=== PATIENT | female | born 1965 | race Caucasian/White ===

== ENCOUNTER 2018-04-15 09:40 | Day surgery (SDC) | payer BC ==
--- NOTE | 2018-04-05 17:04 | HP ---
AMENDED REPORT NOW INCLUDES COSIGNER DESIGNATION PREOPERATIVE HISTORY AND PHYSICAL: DATE OF ADMISSION/SURGERY: 04/15/18 DATE OF OFFICE VISIT/ENCOUNTER: 03/23/18 ATTENDING SURGEON: Renae Krause MD * (DICTATED BY DODIE MARKS) PROCEDURE: Left thumb trigger release. CHIEF COMPLAINT: Left thumb stiffness and pain. HISTORY OF PRESENT ILLNESS: This is a 53-year-old female who has had symptoms in her left thumb since end of 2016. She does not recall any specific injury. She complains of lack of motion, pain, and some occasional catching. She received a cortisone injection in June 2017, which was helpful for a period of time, but unfortunately the symptoms recurred. She is interested now in pursuing surgical intervention. PAST MEDICAL HISTORY: 1. History of a heart murmur. 2. Anxiety. PAST SURGICAL HISTORY: 1. Tubal ligation. 2. Bilateral cataract removal. CURRENT MEDICATIONS: Lexapro 20 mg daily. ALLERGIES: SULFA ANTIBIOTICS cause nausea. FAMILY MEDICAL HISTORY: Heart disease, hypertension, cancer, rheumatoid arthritis. 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 She smokes on rare occasion. She denies recreational drug use and she drinks alcohol on occasion. REVIEW OF SYSTEMS: Negative for general, cephalic, cardiovascular, respiratory , GI, , other musculoskeletal, integumentary, endocrine, neurologic, and hematologic symptoms. Infectious Disease: Negative for MRSA, hepatitis C, HIV. PHYSICAL EXAMINATION GENERAL: Well-developed, well-nourished 53-year-old female, in no acute distress. VITAL SIGNS: Height 5 feet 3 inches, weight 118 pounds. Pulse rate 72, blood pressure 110/72. HEENT: Normocephalic, atraumatic. Pupils are equal, round, and reactive to light and accommodation. Extraocular movements are intact. Throat is clear. NECK: Supple. No palpable lymph nodes. PULMONARY: Lungs are clear to auscultation bilaterally. No wheezes, rales, or rhonchi. CARDIOVASCULAR: Regular rate and rhythm. S1, S2. Faint systolic murmur detected on auscultation. No rubs or gallops or edema. ABDOMEN: Positive bowel sounds. Soft, nontender. NEUROLOGICAL: Alert and oriented x3. Cranial nerves II through XII are intact. Sensation is intact to light touch. MUSCULOSKELETAL: On exam of her right thumb, she has tenderness to palpation at the A1 isabel and clicking with flexion. She has trouble flexing her thumb all the way. Skin is intact. Neurovascular function is intact. IMPRESSION: Left trigger thumb. PLAN: The patient is scheduled to undergo a left thumb trigger release with Dr. Krause on 04/15/18. She will return to the office 10 days postop for followup and suture removal. A prescription for Tylenol No. 3 was e-scribed to the patient's pharmacy for postoperative pain management. DODIE MARKS [id number]/FAZAL #: [id number] MTDBrooke
[~2018-04-15 09:40] MED LIST: Acetaminophen TAB* 325 MG PO PRN; Buffered Lidocaine 0.9% SYRIN* 5 ML/SYR SYRINGE INTRADERM ONE; Dexamethasone TAB* 4 MG ONE; Dexamethasone TAB* 4 MG PO ONE; DiMENhydriNATE IV* 50 MG/ML VIAL IV PUSH PRN; Famotidine IV* 10 MG/ML 2 ML (20 mg) IV ONE; Famotidine IV* 10 MG/ML 2 ML (20 mg) ONE; Naloxone* 0.4 MG/ML 1 ML VIAL IV PRN; Ondansetron ODT TAB* 4 MG ONE; Ondansetron TAB* 4 MG PO ONE; PROCHLORPERAZINE INJ 5 MG/ML 2 ML VIAL IV PRN; fentaNYL* 50 MCG/ML 2 ML VIAL (100 MCG VIAL) IV PRN; oxyCODONE/Acetamin 5/325 MG* TAB PO PRN
[2018-04-15] MEDS ORDERED: Lidocaine 1% INJ* 10 MG/ML 30 ML SDV ONE (10:19)
[2018-04-15] MEDS ORDERED: fentaNYL* 50 MCG/ML 2 ML VIAL (100 MCG VIAL) ONE (10:22)
[2018-04-15] MEDS ORDERED: Midazolam* 1 MG/ML 5 ML VIAL (5 MG) ONE (10:22)
[2018-04-15] MEDS ORDERED: Ketorolac INJ* 30 MG/ML 1 ML VIAL ONE (10:52)
[2018-04-15] MEDS ORDERED: Propofol* 10 MG/ML 20 ML BTL IV PUSH ONE (10:52)
[2018-04-15] MEDS ORDERED: Lidocaine 2% PF * 5 ML VIAL ONE (10:52)
[2018-04-15 11:15] VITALS: BP 114/58
--- NOTE | 2018-04-16 05:48 | OP ---
DATE OF OPERATION: 04/15/18 [facility] DATE OF : 63 SURGEON: Renae Krause MD BULLDOZER ENGINEER: DODIE Spann ANESTHESIA: Local MAC. PRE-OP DIAGNOSIS: Left trigger thumb. POST-OP DIAGNOSIS: Left trigger thumb. OPERATIVE PROCEDURE: Left trigger thumb release. ESTIMATED BLOOD LOSS: Zero. TOURNIQUET TIME: About 10 minutes. INDICATION FOR PROCEDURE: Little is a 53-year-old female with triggering and locking of her left thumb. She presents for trigger thumb release. DESCRIPTION OF PROCEDURE: The patient was brought to the operating room, was given a sedation anesthetic and a local infiltration 10 cc of 1% plain lidocaine over the A1 isabel of her left thumb. Skin of her left hand and forearm was prepped and draped in the usual sterile fashion. The hand and forearm were exsanguinated and the tourniquet elevated to 250 mmHg. A transverse incision was made centered over the A1 isabel. We dissected through the subcutaneous tissue down to the isabel. The digital neurovascular bundles were retracted by the surgical scrub technician, Lily Snyder. The isabel was incised longitudinally completely releasing the flexor tendon, which was in good condition. The wound was irrigated and the skin edges reapproximated with 4-0 nylon suture. The wound was dressed with Xeroform, 4x4, Webril, and an Chema wrap. The patient tolerated the procedure well and was brought to the recovery room in good condition. [id number] #: [id number] MTDD
== END 2018-04-15 11:41 | disposition home or self-care (01) ==
LOC: OREAST 09:40
PROVIDERS: ATTEND Orthopaedic Surgery
DX: M65.312 Trigger thumb, left thumb (principal); R01.1 Cardiac murmur, unspecified; F41.9 Anxiety disorder, unspecified
CPT/HCPCS: A9270-GY; J1885; J2250; J2704; J3010; J8540

== ENCOUNTER 2019-10-01 09:12 | Emergency (ER) | payer BC ==
[2019-10-01 09:27] VITALS: BP 121/78
[2019-10-01] MEDS ORDERED: Fluorescein Sodium TOPICAL* 1 MG TEST STRIP OPHTHALMIC ONE (09:32)
[2019-10-01] MEDS ORDERED: Tetracaine 0.5% OPTH.SOL 4 ML* 1 DROP BTL LEFT EYE ONE (09:32)
--- NOTE | 2019-10-01 09:59 | UC ---
Eye Complaint HPI - HPI Summary HPI Summary: 54-year-old woman comes in with a chief complaint of left eye pain. Yesterday while driving with the windows down in her automobile she had sudden onset of left eye pain. She's had watery discharge. No known foreign body in the eye. She does not wear contacts. The eye was more irritated last night than today however does still feels irritated. - History of Current Complaint Chief Complaint: UCEye Stated Complaint: LT EYE DISCOMFORT Time Seen by Provider: 10/01/19 09:28 Pain Intensity: 5 - Allergies/Home Medications Allergies/Adverse Reactions: Allergies Allergy/AdvReac Type Severity Reaction Status Date / Time Sulfa (Sulfonamide Allergy Severe Headache Verified 10/01/19 09:20 Antibiotics) Home Medications: Home Medications Tobramycin 0.3% OPHTH.NURIS* 1 drop LEFT EYE Q4H #1 btl 10/01/19 [Rx] PMH/Surg Hx/FS Hx/Imm Hx Previously Healthy: Yes - Surgical History Surgical History: Yes Surgery Procedure, Year, and Place: Left Thumb Trigger Finger, 2018, [place]; Bilateral Cataract Extrations, ~2016, [place]; Tubal Ligation, ~1999, [place] - Family History Known Family History: Positive: Non-Contributory - Social History Alcohol Use: Weekly Substance Use Type: None Smoking Status (MU): Former Smoker Amount Used/How Often: social smoker Length of Time of Smoking/Using Tobacco: On and Off for "I don't even know ... social smoker" When Did the Patient Quit Smoking/Using Tobacco: ~2009 Review of Systems All Other Systems Reviewed And Are Negative: Yes Constitutional: Positive: Negative Skin: Positive: Negative Eyes: Positive: Drainage - LEFT, Other - SEE HPI ENT: Positive: Negative Respiratory: Positive: Negative Neurovascular: Positive: Negative Musculoskeletal: Positive: Negative Neurological/Mental Status: Positive: Negative Psychological: Positive: Negative Is Patient Immunocompromised?: No Physical Exam Triage Information Reviewed: Yes Appearance: Well-Appearing, No Pain Distress, Well-Nourished Vital Signs: Initial Vital Signs Temp 98.3 F 10/01/19 09:19 Pulse 58 10/01/19 09:19 Resp 16 10/01/19 09:19 BP 121/78 10/01/19 09:19 Pulse Ox 97 10/01/19 09:19 Vital Signs Reviewed: Yes Eyes: Positive: Other: - PERRLA EOMI. No hyphema. With floor seen stain there is a 2 mm uptake at the 4 o'clock position of the iris of the right I. No foreign body seen. Minimal scleral injection. Eye Complaint Course/Dx - Course Course Of Treatment: Patient will follow up with her distribution lineman tomorrow if not improved. - Differential Dx/Diagnosis Provider Diagnosis: Left corneal abrasion Discharge ED - Sign-Out/Discharge Documenting (check all that apply): Patient Departure All imaging exams completed and their final reports reviewed: No Studies - Discharge Plan Condition: Stable Disposition: HOME Prescriptions: Tobramycin 0.3% OPHTH.NURIS* 1 drop LEFT EYE Q4H #1 btl Patient Education Materials: Corneal Abrasion (ED) Referrals: Delilah Slaughter MD [Primary Care Provider] - Additional Instructions: FOLLOW UP WITH YOUR RIGGING HELPER IF NOT COMPLETELY IMPROVED. GET REEVALUATED IF NOT IMPROVING OR WORSE OR ANY QUESTIONS OR CONCERNS. - Billing Disposition and Condition Condition: STABLE Disposition: Home
== END 2019-10-01 10:05 | disposition home or self-care (01) ==
LOC: UCCORT 09:12
DX: S05.02XA Injury of conjunctiva and corneal abrasion without foreign body, left eye, initial encounter (principal); X58.XXXA Exposure to other specified factors, initial encounter; Y92.810 Car as the place of occurrence of the external cause; Z88.2 Allergy status to sulfonamides; Z87.891 Personal history of nicotine dependence
CPT/HCPCS: 99212; A9270-GY; G0463